=== PATIENT | female | born 1995 | race Caucasian/White ===

== ENCOUNTER 2018-02-19 01:07 | Emergency (ER) | payer SELFPAY ==
[~2018-02-19] VITALS: Ht 167.6 cm; Wt 50.0 kg
[2018-02-19] MEDS ORDERED: ACETAMINOPHEN 325MG TABLET PO ONE (04:00)
[2018-02-19] MEDS ORDERED: ACETAMINOPHEN 325MG TABLET PO NR (04:15)
[2018-02-19 05:00] VITALS: BP 132/71
== END 2018-02-19 05:00 | disposition home or self-care (01) ==
LOC: ER 01:07
DX: R06.02 Shortness of breath (principal); F17.200 Nicotine dependence, unspecified, uncomplicated
CPT/HCPCS: 71045; 81025; 99283; Z7610